=== PATIENT | male | born 1990 | race Caucasian/White ===

== ENCOUNTER 2019-04-26 19:30 | Emergency (ER) | payer OTHER ==
[~2019-04-26] VITALS: Ht 182.9 cm; Wt 93.0 kg
[~2019-04-26 19:30] MED LIST: ALBU90OI INH; AMOX250 PO; CLIN300 PO; CLON.5 PO; DIPH50 PO; FAMO20 PO; HYDACE5 PO; HYDPAM50 PO; IBUP600 PO; METPHE10; METPHE20 PO; NAPR500 PO; OXYACE5T PO; OXYACE7.5T PO; PERM5TC TOP; PRED10 PO; PROM25 PO; QUET200 PO; RXPROM25 PO; RXPROM25S PR; TRAZ50; TRIA80TC TOP
[2019-04-26] MEDS ORDERED: Bactrim Ds Tab1 EACH PO (21:30)
[2019-04-26] MEDS ORDERED: CEPH500 PO (21:30)
== END 2019-04-26 22:00 | disposition home or self-care (01) ==
LOC: ER 19:30
DX: S61.230A Puncture wound without foreign body of right index finger without damage to nail, initial encounter (principal); S61.232A Puncture wound without foreign body of right middle finger without damage to nail, initial encounter; F90.9 Attention-deficit hyperactivity disorder, unspecified type; Z23 Encounter for immunization; Z88.5 Allergy status to narcotic agent; Z88.8 Allergy status to other drugs, medicaments and biological substances; Z87.891 Personal history of nicotine dependence; X58.XXXA Exposure to other specified factors, initial encounter
CPT/HCPCS: 73130; 90471; 90714; 99283-25; A9270

== ENCOUNTER 2019-05-24 15:27 | Emergency (ER) | payer OTHER ==
[~2019-05-24] VITALS: Ht 182.9 cm; Wt 90.7 kg
[~2019-05-24 15:27] MED LIST changes: +Bactrim Ds Tab1 EACH PO; +CEPH500 PO
[2019-05-24] MEDS ORDERED: ALBU90OI INH (15:51)
[2019-05-24] MEDS ORDERED: Bactrim Ds Tab1 EACH PO (15:51)
[2019-05-24] MEDS ORDERED: Vistaril25 MG PO (15:51)
[2019-05-24] MEDS ORDERED: Keflex500 MG PO (15:51)
[2019-05-24] MEDS ORDERED: ALBU2.5V5 NEB (15:55)
== END 2019-05-24 16:00 | disposition home or self-care (01) ==
LOC: ER 15:27
DX: S61.012A Laceration without foreign body of left thumb without damage to nail, initial encounter (principal); F41.9 Anxiety disorder, unspecified; Z87.891 Personal history of nicotine dependence; Z88.5 Allergy status to narcotic agent; W23.0XXA Caught, crushed, jammed, or pinched between moving objects, initial encounter; Y92.39 Other specified sports and athletic area as the place of occurrence of the external cause
CPT/HCPCS: 99282

== ENCOUNTER 2019-06-09 12:04 | Emergency (ER) | payer OTHER ==
[~2019-06-09] VITALS: Ht 180.3 cm; Wt 90.7 kg
[~2019-06-09 12:04] MED LIST changes: +ALBU2.5V5 NEB; +Keflex500 MG PO; +Vistaril25 MG PO
[2019-06-09] MEDS ORDERED: Colace250 MG PO (13:13)
[2019-06-11 03:08] LABS: HCV ANTIBODY 0.1 (0.0-0.9); HIV SCREEN 4TH GENERATION WRFX Non Reactive (Non Reactive)
== END 2019-06-09 13:45 ==
LOC: ER 12:04
PROVIDERS: Emergency Medicine
DX: T74.21XA Adult sexual abuse, confirmed, initial encounter (principal); Z87.891 Personal history of nicotine dependence; Z88.5 Allergy status to narcotic agent
CPT/HCPCS: 36415; 86317; 86803; 87389; 96372; 99284-25; J0696

== ENCOUNTER → 2019-10-02 | Outpatient (CLI) | payer OTHER ==
[~2019-10-02] MED LIST changes: +Colace250 MG PO
[2019-10-02 14:14] LABS: BASOPHILS ABSOLUTE AUTO 0.05 K/mm3 (0.00-0.23); BASOPHILS PERCENT AUTO 1 % (0-2); EOSINOPHILS ABSOLUTE AUTO 0.13 K/mm3 (0.00-0.68); EOSINOPHILS PERCENT AUTO 2 % (0-6); Hematocrit 47.8 % (37.0-53.0); Hemoglobin 16.1 g/dL (13.5-17.5); IMMATURE GRAN ABSOLUTE AUTO 0.01 K/mm3 (0.00-0.10); IMMATURE GRAN PERCENT AUTO 0 % (0-1); LYMPHOCYTES ABSOLUTE AUTO 2.38 K/mm3 (0.84-5.20); LYMPHOCYTES PERCENT AUTO 36 % (21-46); MONOCYTES ABSOLUTE AUTO 0.32 K/mm3 (0.16-1.47); MONOCYTES PERCENT AUTO 5 % (4-13); Mean Corpuscular HGB 30.5 pg (26.0-34.0); Mean Corpuscular HGB Conc 33.7 g/dL (31.5-36.5); Mean Corpuscular Volume 91 fL (80-100); Mean Platelet Volume 11.9 fL (9.1-12.4); NEUTROPHILS ABSOLUTE AUTO 3.68 K/mm3 (1.96-9.15); NEUTROPHILS PERCENT AUTO 56 % (41-73); Platelet Count 243 K/mm3 (150-400); RDW Coefficient Variation 13.4 % (11.7-14.2); RDW Standard Deviation 44.7 fL (35.1-46.3); Red Blood Cell Count 5.28 M/mm3 (4.30-5.90); White Blood Cell Count 6.57 K/mm3 (4.00-11.30)
[2019-10-02 14:35] LABS: Alanine Aminotransfer (ALT/SGP 39 U/L (12-78); Albumin, Blood 4.3 g/dL (3.4-5.0); Alk Phos 54 U/L (40-126); Anion Gap 4 mmol/L (6-16); Aspartate Aminotrans (AST/SGOT 39 U/L (12-37); Bilirubin, Total 0.8 mg/dL (0.1-1.0); Blood Urea Nitrogen 11 mg/dL (8-24); Bun/Creatinine Ratio 13.9 (12.0-20.0); CO2, Blood 29 mmol/L (21-32); Calcium, Blood 9.5 mg/dL (8.5-10.1); Chloride, Blood 103 mmol/L (98-108); Creatinine, Blood 0.79 mg/dL (0.60-1.20); Globulin, Blood 4.1 g/dL (2.2-4.0); Glomerular Filtration Rate >60 (60-); Glucose, Blood 91 mg/dL (70-99); Sodium, Blood 136 mmol/L (136-145); Total Protein, Blood 8.4 g/dL (6.4-8.2)
[2019-10-02 14:36] LABS: Potassium, Blood 4.7 mmol/L (3.5-5.5)
== END ==
LOC: LAB SHORT 14:10 → LAB EV 14:10
PROVIDERS: Physician Assistant
DX: K52.9 Noninfective gastroenteritis and colitis, unspecified (principal)
CPT/HCPCS: 80053; 85025

== ENCOUNTER 2020-07-16 16:10 | Emergency (ER) | payer OTHER ==
[~2020-07-16] VITALS: Ht 182.9 cm; Wt 93.0 kg
[~2020-07-16 16:10] MED LIST changes: +GABA600 PO; +Inderal 20 mg T20 MG PO; +OMEP20ER PO
== END 2020-07-16 17:34 | disposition home or self-care (01) ==
LOC: ER 16:10
DX: S60.452A Superficial foreign body of right middle finger, initial encounter (principal); F41.9 Anxiety disorder, unspecified; Z88.5 Allergy status to narcotic agent; Z87.891 Personal history of nicotine dependence; Z79.899 Other long term (current) drug therapy; W49.04XA Ring or other jewelry causing external constriction, initial encounter
CPT/HCPCS: 99283

== ENCOUNTER 2020-08-14 15:02 | Emergency (ER) | payer OTHER ==
[~2020-08-14] VITALS: Ht 180.3 cm; Wt 95.2 kg
[2020-08-14] MEDS ORDERED: BUPRENORPHINE HC2 MG SL (15:09)
[2020-08-14 15:24] LABS: Source, Urine Voided
[2020-08-14 15:29] LABS: Appearance, Urine Hazy (Clear); Bilirubin, Urine Neg (Neg); Blood, Urine 5+ (Neg); Color, Urine Yellow (P-Yellow); Glucose Qualitative, Urine Neg (Neg); Ketones, Urine Neg (Neg); Leukocyte Esterase, Urine 2+ (Neg); Nitrite, Urine Neg (Neg); Protein, Urine 1+ (Neg); Urobilinogen, Urine NORM (Normal)
[2020-08-14 15:40] LABS: Bacteria Few /hpf; Red Blood Cells, Urine 50-100 /hpf (0-2); Squamous Epithelial Cells Few /hpf (Few)
[2020-08-14 16:13] LABS: BASOPHILS ABSOLUTE AUTO 0.05 K/mm3 (0.00-0.23); BASOPHILS PERCENT AUTO 1 % (0-2); EOSINOPHILS ABSOLUTE AUTO 0.21 K/mm3 (0.00-0.68); EOSINOPHILS PERCENT AUTO 3 % (0-6); Hematocrit 43.9 % (37.0-53.0); Hemoglobin 14.3 g/dL (13.5-17.5); IMMATURE GRAN ABSOLUTE AUTO 0.01 K/mm3 (0.00-0.10); IMMATURE GRAN PERCENT AUTO 0 % (0-1); LYMPHOCYTES ABSOLUTE AUTO 3.24 K/mm3 (0.84-5.20); LYMPHOCYTES PERCENT AUTO 39 % (21-46); MONOCYTES ABSOLUTE AUTO 0.74 K/mm3 (0.16-1.47); MONOCYTES PERCENT AUTO 9 % (4-13); Mean Corpuscular HGB 29.2 pg (26.0-34.0); Mean Corpuscular HGB Conc 32.6 g/dL (31.5-36.5); Mean Corpuscular Volume 90 fL (80-100); Mean Platelet Volume 10.5 fL (9.1-12.4); NEUTROPHILS ABSOLUTE AUTO 4.03 K/mm3 (1.96-9.15); NEUTROPHILS PERCENT AUTO 49 % (41-73); Platelet Count 254 K/mm3 (150-400); RDW Coefficient Variation 13.1 % (11.7-14.2); RDW Standard Deviation 43.4 fL (35.1-46.3); White Blood Cell Count 8.28 K/mm3 (4.00-11.30)
[2020-08-14 16:30] LABS: Alanine Aminotransfer (ALT/SGP 67 U/L (12-78); Albumin, Blood 3.3 g/dL (3.4-5.0); Albumin/Globulin Ratio 0.8 (0.8-1.8); Alk Phos 65 U/L (50-136); Anion Gap 3 mmol/L (6-16); Aspartate Aminotrans (AST/SGOT 30 U/L (12-37); Bilirubin, Total 0.2 mg/dL (0.1-1.0); Blood Urea Nitrogen 14 mg/dL (8-24); Bun/Creatinine Ratio 15.9 (12.0-20.0); CO2, Blood 32 mmol/L (21-32); Calcium, Blood 9.1 mg/dL (8.5-10.1); Chloride, Blood 103 mmol/L (98-108); Creatinine, Blood 0.88 mg/dL (0.60-1.20); Globulin, Blood 3.9 g/dL (2.2-4.0); Glomerular Filtration Rate >60 (60-); Glucose, Blood 92 mg/dL (70-99); Potassium, Blood 4.3 mmol/L (3.5-5.5); Sodium, Blood 138 mmol/L (136-145); Total Protein, Blood 7.2 g/dL (6.4-8.2)
[2020-08-14] MEDS ORDERED: Monodox100 MG PO (16:48)
[2020-08-14] MEDS ORDERED: VALTREX500 MG PO (16:53)
== END 2020-08-14 17:15 | disposition home or self-care (01) ==
LOC: ER 15:02
PROVIDERS: Physician Assistant; Student in an Organized Health Care Education/Training Program
DX: B00.1 Herpesviral vesicular dermatitis (principal); R31.9 Hematuria, unspecified; R10.9 Unspecified abdominal pain; Z88.5 Allergy status to narcotic agent; Z79.899 Other long term (current) drug therapy; Z87.891 Personal history of nicotine dependence; Y04.0XXA Assault by unarmed brawl or fight, initial encounter
CPT/HCPCS: 36415; 74177; 80053; 81001; 85025; 87086; 96372-59; 99284-25; J0696; Q9967

== ENCOUNTER 2020-08-26 12:37 | Emergency (ER) | payer OTHER ==
[~2020-08-26] VITALS: Ht 180.3 cm; Wt 78.0 kg
[~2020-08-26 12:37] MED LIST changes: +BUPRENORPHINE HC2 MG SL; +Monodox100 MG PO; +VALTREX500 MG PO
[2020-08-26] MEDS ORDERED: METPHE20 PO (13:00)
[2020-08-26 13:22] LABS: BASOPHILS ABSOLUTE AUTO 0.08 K/mm3 (0.00-0.23); BASOPHILS PERCENT AUTO 1 % (0-2); EOSINOPHILS ABSOLUTE AUTO 0.18 K/mm3 (0.00-0.68); EOSINOPHILS PERCENT AUTO 2 % (0-6); Hematocrit 39.9 % (37.0-53.0); Hemoglobin 13.4 g/dL (13.5-17.5); IMMATURE GRAN ABSOLUTE AUTO 0.01 K/mm3 (0.00-0.10); IMMATURE GRAN PERCENT AUTO 0 % (0-1); LYMPHOCYTES ABSOLUTE AUTO 2.93 K/mm3 (0.84-5.20); LYMPHOCYTES PERCENT AUTO 32 % (21-46); MONOCYTES ABSOLUTE AUTO 0.79 K/mm3 (0.16-1.47); MONOCYTES PERCENT AUTO 9 % (4-13); Mean Corpuscular HGB 29.3 pg (26.0-34.0); Mean Corpuscular HGB Conc 33.6 g/dL (31.5-36.5); Mean Corpuscular Volume 87 fL (80-100); Mean Platelet Volume 10.9 fL (9.1-12.4); NEUTROPHILS ABSOLUTE AUTO 5.07 K/mm3 (1.96-9.15); NEUTROPHILS PERCENT AUTO 56 % (41-73); Platelet Count 262 K/mm3 (150-400); RDW Coefficient Variation 13.2 % (11.7-14.2); RDW Standard Deviation 42.2 fL (35.1-46.3); Red Blood Cell Count 4.57 M/mm3 (4.30-5.90); White Blood Cell Count 9.06 K/mm3 (4.00-11.30)
[2020-08-26 13:50] LABS: Alanine Aminotransfer (ALT/SGP 48 U/L (12-78); Albumin, Blood 4.1 g/dL (3.4-5.0); Albumin/Globulin Ratio 1.2 (0.8-1.8); Alk Phos 62 U/L (50-136); Anion Gap 9 mmol/L (6-16); Aspartate Aminotrans (AST/SGOT 42 U/L (12-37); Bilirubin, Total 0.8 mg/dL (0.1-1.0); Blood Urea Nitrogen 22 mg/dL (8-24); Bun/Creatinine Ratio 27.7 (12.0-20.0); CO2, Blood 24 mmol/L (21-32); Calcium, Blood 9.2 mg/dL (8.5-10.1); Chloride, Blood 104 mmol/L (98-108); Creatinine, Blood 0.79 mg/dL (0.60-1.20); Globulin, Blood 3.5 g/dL (2.2-4.0); Glomerular Filtration Rate >60 (60-); Glucose, Blood 92 mg/dL (70-99); Potassium, Blood 3.8 mmol/L (3.5-5.5); Sodium, Blood 137 mmol/L (136-145); Total Protein, Blood 7.6 g/dL (6.4-8.2)
== END 2020-08-26 16:13 | disposition left against medical advice (07) ==
LOC: ER 12:37
PROVIDERS: Emergency Medicine
DX: R42 Dizziness and giddiness (principal); Z53.21 Procedure and treatment not carried out due to patient leaving prior to being seen by health care provider
CPT/HCPCS: 36415; 80053; 85025

== ENCOUNTER 2020-09-12 01:16 | Emergency (ER) | payer OTHER ==
[~2020-09-12] VITALS: Ht 180.3 cm; Wt 79.4 kg
[2020-09-12] MEDS ORDERED: TRAZ100 PO (02:12)
== END 2020-09-12 02:19 | disposition home or self-care (01) ==
LOC: ER 01:16
DX: F41.9 Anxiety disorder, unspecified (principal); Z79.899 Other long term (current) drug therapy; Z87.891 Personal history of nicotine dependence; Z88.5 Allergy status to narcotic agent
CPT/HCPCS: 99282

== ENCOUNTER 2020-11-10 15:42 | Emergency (ER) | payer OTHER ==
[~2020-11-10] VITALS: Ht 180.3 cm; Wt 83.9 kg
[~2020-11-10 15:42] MED LIST changes: +TRAZ100 PO
[2020-11-10 16:58] LABS: BASOPHILS ABSOLUTE AUTO 0.06 K/mm3 (0.00-0.23); BASOPHILS PERCENT AUTO 1 % (0-2); EOSINOPHILS ABSOLUTE AUTO 0.47 K/mm3 (0.00-0.68); EOSINOPHILS PERCENT AUTO 5 % (0-6); Hematocrit 43.9 % (37.0-53.0); Hemoglobin 14.6 g/dL (13.5-17.5); IMMATURE GRAN ABSOLUTE AUTO 0.02 K/mm3 (0.00-0.10); IMMATURE GRAN PERCENT AUTO 0 % (0-1); LYMPHOCYTES ABSOLUTE AUTO 2.82 K/mm3 (0.84-5.20); LYMPHOCYTES PERCENT AUTO 30 % (21-46); MONOCYTES ABSOLUTE AUTO 0.65 K/mm3 (0.16-1.47); MONOCYTES PERCENT AUTO 7 % (4-13); Mean Corpuscular HGB 29.6 pg (26.0-34.0); Mean Corpuscular HGB Conc 33.3 g/dL (31.5-36.5); Mean Corpuscular Volume 89 fL (80-100); Mean Platelet Volume 10.4 fL (9.1-12.4); NEUTROPHILS ABSOLUTE AUTO 5.46 K/mm3 (1.96-9.15); NEUTROPHILS PERCENT AUTO 58 % (41-73); Platelet Count 225 K/mm3 (150-400); RDW Coefficient Variation 13.6 % (11.7-14.2); Red Blood Cell Count 4.94 M/mm3 (4.30-5.90); White Blood Cell Count 9.48 K/mm3 (4.00-11.30)
[2020-11-10 17:22] LABS: Alanine Aminotransfer (ALT/SGP 115 U/L (12-78); Albumin, Blood 3.6 g/dL (3.4-5.0); Albumin/Globulin Ratio 0.9 (0.8-1.8); Alk Phos 83 U/L (50-136); Anion Gap 8 mmol/L (6-16); Aspartate Aminotrans (AST/SGOT 40 U/L (12-37); Bilirubin, Total 0.2 mg/dL (0.1-1.0); Blood Urea Nitrogen 12 mg/dL (8-24); Bun/Creatinine Ratio 15.1 (12.0-20.0); CO2, Blood 28 mmol/L (21-32); Chloride, Blood 105 mmol/L (98-108); Ethanol (Alcohol), Blood, Med <3 mg/dL; Globulin, Blood 3.9 g/dL (2.2-4.0); Glomerular Filtration Rate >60 (60-); Glucose, Blood 93 mg/dL (70-99); Potassium, Blood 3.9 mmol/L (3.5-5.5); Salicylate <1.7 mg/dL (2.8-20.0); Sodium, Blood 141 mmol/L (136-145); Total Protein, Blood 7.5 g/dL (6.4-8.2)
[2020-11-10] MEDS ORDERED: [UNRECOGNIZED DRUG - REMARK] (17:28)
[2020-11-10 17:45] LABS: Acetaminophen, Random <2.0 ug/mL (10.0-30.0)
== END 2020-11-10 21:56 | disposition home or self-care (01) ==
LOC: ER 15:42
PROVIDERS: Physician Assistant
DX: F15.259 Other stimulant dependence with stimulant-induced psychotic disorder, unspecified (principal); F11.259 Opioid dependence with opioid-induced psychotic disorder, unspecified; F43.21 Adjustment disorder with depressed mood; R45.851 Suicidal ideations; F20.9 Schizophrenia, unspecified; F31.9 Bipolar disorder, unspecified; F41.9 Anxiety disorder, unspecified; F90.9 Attention-deficit hyperactivity disorder, unspecified type; Z91.5 Personal history of self-harm; Z88.5 Allergy status to narcotic agent; Z79.899 Other long term (current) drug therapy; Z87.891 Personal history of nicotine dependence; Z86.14 Personal history of Methicillin resistant Staphylococcus aureus infection
CPT/HCPCS: 36415; 80053; 85025; 99284; G0480; Q3014

== ENCOUNTER 2022-07-05 18:55 | Emergency (ER) | payer OTHER ==
[~2022-07-05] VITALS: Ht 182.9 cm; Wt 83.9 kg
[~2022-07-05 18:55] MED LIST changes: +ABILIFY MYCITE20 M2 PO; +Acetaminophen650 M1 PO; +BISA10S; +CELEXA40 M1 PO; +DOXY100 PO; +Mupirocin22 GM TOP; +Percocet 5-3251 EACH PO; +SULTRIDS PO; +TRAZ150T57 PO; +VISBIOME 112.51 EACH PO; +[UNRECOGNIZED DRUG - REMARK]
[2022-07-05] MEDS ORDERED: CYCL10 PO (22:50)
[2022-07-05] MEDS ORDERED: ALBU90OI INH (22:57)
== END 2022-07-05 23:03 | disposition home or self-care (01) ==
LOC: ER 18:55
DX: S16.1XXA Strain of muscle, fascia and tendon at neck level, initial encounter (principal); S39.012A Strain of muscle, fascia and tendon of lower back, initial encounter; V89.2XXA Person injured in unspecified motor-vehicle accident, traffic, initial encounter; Z88.5 Allergy status to narcotic agent; Z87.891 Personal history of nicotine dependence
CPT/HCPCS: 70450; 72100; 72125; A9270

== ENCOUNTER 2022-08-17 19:39 | Emergency (ER) | payer OTHER ==
[~2022-08-17] VITALS: Ht 175.3 cm; Wt 77.1 kg
[~2022-08-17 19:39] MED LIST changes: +CYCL10 PO
[2022-08-17] MEDS ORDERED: ALBU90OI INH (23:19)
[2022-08-17] MEDS ORDERED: NARCAN4 M1 (23:19)
== END 2022-08-17 23:48 | disposition home or self-care (01) ==
LOC: ER 19:39
DX: T40.411A Poisoning by fentanyl or fentanyl analogs, accidental (unintentional), initial encounter (principal); R40.4 Transient alteration of awareness; Z88.5 Allergy status to narcotic agent; Z79.899 Other long term (current) drug therapy; Z87.891 Personal history of nicotine dependence
CPT/HCPCS: 71045; 73100; 93005; 93010; 94640; 94664; 99284-25

== ENCOUNTER 2022-12-16 19:32 | Observation (INO) | payer OTHER ==
[~2022-12-16] VITALS: Ht 182.9 cm; Wt 80.3 kg
[~2022-12-16 19:32] MED LIST changes: -ABILIFY MYCITE5 M2 PO; -ESCI20 PO; -GABAPENTIN600 MG PO
[2022-12-16] MEDS ORDERED: GABAPENTIN600 MG PO (19:55)
[2022-12-16] MEDS ORDERED: ESCI20 PO (19:55)
[2022-12-16] MEDS ORDERED: ABILIFY MYCITE5 M2 PO (19:56)
[2022-12-16] MEDS ORDERED: METPHE20 PO (19:56)
[2022-12-16] MEDS ORDERED: TRAZ150T57 PO (19:56)
[2022-12-16 20:34] LABS: Influenza A, PCR NEGATIVE (NEGATIVE); Influenza B, PCR NEGATIVE (NEGATIVE); Resp Syncytial Virus, PCR NEGATIVE (NEGATIVE); SARS-Cov-2 (COVID-19) PCR, MMC NEGATIVE (NEGATIVE)
[2022-12-16 22:32] LABS: C-REACTIVE PROTEIN, EXT RANGE 18.1 mg/dL (0.000-0.300)
[2022-12-16 23:49] VITALS: BP 110/64
[2022-12-17 00:56] LABS: Hematocrit 40.1 % (37.0-53.0); Hemoglobin 13.3 g/dL (13.5-17.5); Mean Corpuscular HGB 28.3 pg (26.0-34.0); Mean Corpuscular HGB Conc 33.2 g/dL (31.5-36.5); Mean Corpuscular Volume 85 fL (80-100); Mean Platelet Volume 11.1 fL (9.1-12.4); Platelet Count 215 K/mm3 (150-400); RDW Coefficient Variation 13.9 % (11.7-14.2); RDW Standard Deviation 42.9 fL (35.1-46.3); White Blood Cell Count 26.97 K/mm3 (4.00-11.30)
[2022-12-17 01:16] LABS: BAND PERCENT MAN 12 % (0-8); BASOPHILS PERCENT MAN 0 % (0-2); EOSINOPHILS PERCENT MAN 0 % (0-6); LYMPHOCYTES ABSOLUTE MAN 0.53 K/mm3 (0.84-5.20); LYMPHOCYTES PERCENT MAN 2 % (21-46); MONOCYTES ABSOLUTE MAN 1.61 K/mm3 (0.16-1.47); MONOCYTES PERCENT MAN 6 % (4-13); NEUTROPHILS ABSOLUTE MAN 24.81 K/mm3 (1.96-9.15); SEG NEUTROPHILS PERCENT MAN 80 % (41-73); TOTAL CELLS COUNTED 100
[2022-12-17 01:21] LABS: Albumin, Blood 2.4 g/dL (3.4-5.0); Albumin/Globulin Ratio 0.5 (0.8-1.8); Bilirubin, Total 0.4 mg/dL (0.1-1.0); Bun/Creatinine Ratio 35.7 (12.0-20.0); Calcium, Blood 8.6 mg/dL (8.5-10.1); Creatinine, Blood 0.62 mg/dL (0.60-1.20); Globulin, Blood 4.4 g/dL (2.2-4.0); Potassium, Blood 3.9 mmol/L (3.5-5.5); Total Protein, Blood 6.8 g/dL (6.4-8.2)
--- NOTE | 2022-12-17 06:33 | NUR ---
PT ADMITTED FROM ED LETHARGIC BUT ORIENTED, COOPERATIVE. GIRLFRIEND ARRIVED AROUND MIDNIGHT, INFORMED PT AND GF THAT VISITING HOURS WERE OVER, HAD TO CALL SECURITY DUE TO YELLING, CURSING, REFUSING BY BOTH PATIENT AND GF. PT WAS PLEASANT AND COOPERATIVE AGAIN AFTERWARDS. PT INTERMITTENTLY TACHYCARDIC, ANXIOUS. STATES HE HAD FENTANYL YESTERDAY PRIOR TO GOING TO URGENT CARE THEN ED. TOLERATING CARES/MEDS, INDEPENDENT, ORIENTED. DENIED SKIN ISSUES AND REFUSED FULL SKIN CHECK. TWO SCABS NOTED ON L ARM.
[2022-12-17 07:44] VITALS: BP 116/77
--- NOTE | 2022-12-17 12:25 | NUR ---
PATIENT LEFT AMA DURING MORNING MED PASS AND ASSESSMENT, PATIENT RAISED VOICE TO YELLING AND CUSSING, STATES UPSET HE ONLY GETS TYLENOL FOR PAIN. 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 PATIENT CONTINUED WITH RASIED VOICE AND CUSSING AFTER BEING TOLD HIS BEHAVIOR WAS NOT APPROPRIATE. PATIENT TOLD HE CAN LEAVE IF HE IS NOT GOING TO BE RESPECTFUL OF THE RULES OF HOSPITAL. PATIENT STATES HE IS LEAVING, GETS UP TO LEAVE, IV REMOVED BY RIMA, DR GARCIA NOTIFIED AT 1020, AMA SIGNATURE OBTAINED AND PATIENT LEFT FLOOR WITH INCIDENT RESPONSE LEAD AT 1023 ON 12/17/22.
--- NOTE | 2022-12-17 15:12 | NUR ---
THIS FRUIT THINNER AGREES WITH NOTE BY ASHLEY UNRULY.
== END 2022-12-17 10:23 | disposition left against medical advice (07) ==
LOC: ER 19:32 → MEDS 19:33 → ER 22:46 → MEDS 23:00
PROVIDERS: Emergency Medicine; Student in an Organized Health Care Education/Training Program; ADMIT Student in an Organized Health Care Education/Training Program
DX: J18.9 Pneumonia, unspecified organism (principal); F11.20 Opioid dependence, uncomplicated; Z87.891 Personal history of nicotine dependence; Z88.5 Allergy status to narcotic agent; Z79.899 Other long term (current) drug therapy; Z20.822 Contact with and (suspected) exposure to COVID-19
CPT/HCPCS: 0241U; 36415; 71045; 80053; 82550; 83605; 83735; 84484; 85025; 85651; 86140; 93005; 93010; 94640; 94664; 94760; 96365; 96367; 99285-25; G0378; J0456; J0696; J3370; J7030; J7050

== ENCOUNTER → 2022-12-16 | Outpatient (CLI) | payer OTHER ==
[~2022-12-16] MED LIST changes: +ABILIFY MYCITE5 M2 PO; +ESCI20 PO; +GABAPENTIN600 MG PO; +NARCAN4 M1
[2022-12-16 18:01] LABS: Hemoglobin 14.7 g/dL (13.5-17.5); Mean Corpuscular HGB 28.8 pg (26.0-34.0); Mean Corpuscular HGB Conc 34.2 g/dL (31.5-36.5); Mean Corpuscular Volume 84 fL (80-100); Mean Platelet Volume 11.3 fL (9.1-12.4); Platelet Count 236 K/mm3 (150-400); RDW Coefficient Variation 14.3 % (11.7-14.2); RDW Standard Deviation 43.6 fL (35.1-46.3); Red Blood Cell Count 5.11 M/mm3 (4.30-5.90); White Blood Cell Count 34.94 K/mm3 (4.00-11.30)
[2022-12-16 18:15] LABS: Albumin, Blood 3.1 g/dL (3.4-5.0); Albumin/Globulin Ratio 0.6 (0.8-1.8); Bilirubin, Total 1.2 mg/dL (0.1-1.0); Bun/Creatinine Ratio 22.1 (12.0-20.0); Calcium, Blood 9.4 mg/dL (8.5-10.1); Creatinine, Blood 1.04 mg/dL (0.60-1.20); Globulin, Blood 5.3 g/dL (2.2-4.0); Potassium, Blood 3.8 mmol/L (3.5-5.5); Total Protein, Blood 8.4 g/dL (6.4-8.2)
[2022-12-16 18:16] LABS: Bicarbonate Venous 27.9 mmol/L (24.0-30.0); PCO2 Venous 52.6 mmHg (38-42); pH Blood Venous 7.38 (7.34-7.37)
[2022-12-16 18:44] LABS: BAND PERCENT MAN 22 % (0-8); BASOPHILS PERCENT MAN 0 % (0-2); EOSINOPHILS PERCENT MAN 0 % (0-6); LYMPHOCYTES ABSOLUTE MAN 0.69 K/mm3 (0.84-5.20); LYMPHOCYTES PERCENT MAN 2 % (21-46); METAMYELOCYTE ABSOLUTE MAN 1.39 K/mm3 (0.00-0.00); METAMYELOCYTE PERCENT MAN 4 % (0-0); MONOCYTES ABSOLUTE MAN 0.69 K/mm3 (0.16-1.47); MONOCYTES PERCENT MAN 2 % (4-13); NEUTROPHILS ABSOLUTE MAN 32.14 K/mm3 (1.96-9.15); SEG NEUTROPHILS PERCENT MAN 70 % (41-73); TOTAL CELLS COUNTED 100
== END | disposition home or self-care (01) ==
LOC: LAB SHORT 17:53 → LAB 17:53
PROVIDERS: Emergency Medicine
DX: J45.909 Unspecified asthma, uncomplicated (principal); R07.9 Chest pain, unspecified
CPT/HCPCS: 80053; 82803; 83690; 83880; 84484; 85025

== ENCOUNTER 2023-01-20 01:11 | Emergency (ER) | payer OTHER ==
[~2023-01-20] VITALS: Ht 182.9 cm; Wt 83.9 kg
[~2023-01-20 01:11] MED LIST changes: +ABILIFY MYCITE5 M2 PO; +ESCI20 PO; +GABAPENTIN600 MG PO
[2023-01-20 04:15] LABS: Influenza A, PCR NEGATIVE (NEGATIVE); Influenza B, PCR NEGATIVE (NEGATIVE); Resp Syncytial Virus, PCR NEGATIVE (NEGATIVE); SARS-Cov-2 (COVID-19) PCR, MMC NEGATIVE (NEGATIVE)
[2023-01-20 04:30] VITALS: BP 145/79
[2023-01-20] MEDS ORDERED: ALBU90OI INH (04:49)
[2023-01-20] MEDS ORDERED: METPRE4DP PO (04:49)
== END 2023-01-20 04:56 | disposition home or self-care (01) ==
LOC: ER 01:11
PROVIDERS: Emergency Medicine
DX: J45.901 Unspecified asthma with (acute) exacerbation (principal); J98.8 Other specified respiratory disorders; B97.89 Other viral agents as the cause of diseases classified elsewhere; Z88.5 Allergy status to narcotic agent; Z20.822 Contact with and (suspected) exposure to COVID-19; Z87.891 Personal history of nicotine dependence
CPT/HCPCS: 0241U; 71046; 94644; 94664; 99285-25; J7512

== ENCOUNTER 2023-02-23 02:01 | Inpatient (IN) | payer OTHER ==
[~2023-02-23] VITALS: Ht 180.3 cm; Wt 80.8 kg
[2023-02-23] VITALS (31 sets, daily range): BP systolic 108–153; BP diastolic 56–85
[~2023-02-23 02:01] MED LIST changes: +METPRE4DP PO
[2023-02-23 02:15] LABS: Calcium, Ionized (POC) 1.21 mmol/L (1.10-1.46); Chloride (POC) 104 mmol/L (98-108); Creatinine (POC) 1.1 mg/dL (0.8-1.3); Glucose (ISTAT POC) 107 mg/dL (70-99); Potassium (POC) 3.5 mmol/L (3.5-5.5); Sodium (POC) 142 mmol/L (135-148); Total CO2 (POC) 23 mmol/L (21-32)
[2023-02-23 02:18] LABS: pH Blood Venous 7.25 (7.34-7.37)
[2023-02-23 02:20] LABS: Hemoglobin 13.9 g/dL (13.5-17.5); Mean Corpuscular HGB 27.8 pg (26.0-34.0); Mean Corpuscular HGB Conc 32.3 g/dL (31.5-36.5); Mean Corpuscular Volume 86 fL (80-100); Mean Platelet Volume 10.9 fL (9.1-12.4); Platelet Count 289 K/mm3 (150-400); RDW Coefficient Variation 14.2 % (11.7-14.2); RDW Standard Deviation 44.5 fL (35.1-46.3); White Blood Cell Count 12.96 K/mm3 (4.00-11.30)
[2023-02-23 02:38] LABS: Bun/Creatinine Ratio 19.3 (12.0-20.0); Calcium, Blood 9.4 mg/dL (8.5-10.1); Creatinine, Blood 0.98 mg/dL (0.60-1.20); Magnesium, Blood 2.2 mg/dL (1.6-2.4); Potassium, Blood 3.7 mmol/L (3.5-5.5)
[2023-02-23 03:07] LABS: Source, Urine Clean Catch
[2023-02-23 03:09] LABS: Bilirubin, Urine Neg (Neg); Blood, Urine 3+ (Neg); Glucose Qualitative, Urine Neg (Neg); Ketones, Urine Neg (Neg); Leukocyte Esterase, Urine Neg (Neg); Nitrite, Urine Neg (Neg); Protein, Urine 3+ (Neg); Specific Gravity, Urine 1.025 (1.003-1.022); Urobilinogen, Urine NORM (Normal)
[2023-02-23 03:09] LABS: BASOPHILS ABSOLUTE MAN 0.12 K/mm3 (0.00-0.23); BASOPHILS PERCENT MAN 1 % (0-2); EOSINOPHILS ABSOLUTE MAN 1.16 K/mm3 (0.00-0.68); EOSINOPHILS PERCENT MAN 9 % (0-6); LYMPHOCYTES PERCENT MAN 51 % (21-46); MONOCYTES PERCENT MAN 7 % (4-13); NEUTROPHILS ABSOLUTE MAN 4.14 K/mm3 (1.96-9.15); SEG NEUTROPHILS PERCENT MAN 32 % (41-73); TOTAL CELLS COUNTED 100
[2023-02-23 03:36] LABS: PCO2 Arterial 37.1 mmHg (35-45); PO2 Arterial 107 mmHg (80-100); pH Blood Arterial 7.47 (7.35-7.45)
[2023-02-23 03:44] LABS: U Amphetamine Screen DETECTED; U Barbituate Screen Not Detected; U Benzodiazapine Screen Not Detected; U Buprenorphine Screen Not Detected; U Cannabinoids Screen Not Detected; U Cocaine Screen Not Detected; U Methadone Screen DETECTED; U Methamphetamine Screen DETECTED; U Opiates Screen Not Detected; U Oxycodone Screen Not Detected; U Phencyclidine Screen Not Detected; U Propoxyphene Screen Not Detected
[2023-02-23 04:26] LABS: Appearance, Urine Hazy (Clear); Color, Urine Yellow (P-Yellow)
[2023-02-23 04:28] LABS: Bacteria Mod /hpf; Squamous Epithelial Cells Rare /hpf (Few); White Blood Cells, Urine 0-2 /hpf (0-5)
[2023-02-23 04:35] LABS: Influenza A, PCR NEGATIVE (NEGATIVE); Influenza B, PCR NEGATIVE (NEGATIVE); Resp Syncytial Virus, PCR NEGATIVE (NEGATIVE); SARS-Cov-2 (COVID-19) PCR, MMC NEGATIVE (NEGATIVE)
[2023-02-23 05:13] LABS: BASOPHILS ABSOLUTE AUTO 0.05 K/mm3 (0.00-0.23); BASOPHILS PERCENT AUTO 1 % (0-2); EOSINOPHILS ABSOLUTE AUTO 0.07 K/mm3 (0.00-0.68); EOSINOPHILS PERCENT AUTO 1 % (0-6); Hematocrit 37.3 % (37.0-53.0); Hemoglobin 12.4 g/dL (13.5-17.5); IMMATURE GRAN ABSOLUTE AUTO 0.03 K/mm3 (0.00-0.10); IMMATURE GRAN PERCENT AUTO 0 % (0-1); LYMPHOCYTES ABSOLUTE AUTO 1.07 K/mm3 (0.84-5.20); LYMPHOCYTES PERCENT AUTO 10 % (21-46); MONOCYTES ABSOLUTE AUTO 0.26 K/mm3 (0.16-1.47); MONOCYTES PERCENT AUTO 2 % (4-13); Mean Corpuscular HGB 27.7 pg (26.0-34.0); Mean Corpuscular HGB Conc 33.2 g/dL (31.5-36.5); Mean Corpuscular Volume 83 fL (80-100); Mean Platelet Volume 11.1 fL (9.1-12.4); NEUTROPHILS ABSOLUTE AUTO 9.48 K/mm3 (1.96-9.15); NEUTROPHILS PERCENT AUTO 86 % (41-73); Platelet Count 230 K/mm3 (150-400); RDW Standard Deviation 42.9 fL (35.1-46.3); Red Blood Cell Count 4.47 M/mm3 (4.30-5.90); White Blood Cell Count 10.96 K/mm3 (4.00-11.30)
[2023-02-23 05:48] LABS: Source, Urine Foley catheter
[2023-02-23 06:24] LABS: Appearance, Urine Cloudy (Clear); Bilirubin, Urine Neg (Neg); Blood, Urine Neg (Neg); Color, Urine Yellow (P-Yellow); Glucose Qualitative, Urine Neg (Neg); Ketones, Urine 1+ (Neg); Leukocyte Esterase, Urine Neg (Neg); Nitrite, Urine Neg (Neg); Protein, Urine Neg (Neg); Urobilinogen, Urine NORM (Normal)
--- NOTE | 2023-02-23 06:28 | NUR ---
PATIENT TO ICU 7 FROM ER AT 0435. PATIENT IS INTUBATED AND SEDATED ON PROPOFOL, UPON ARRIVAL TO ROOM STILL ATTEMPTING TO SIT UP, VERBAL ORDER FROM [facility] FOR VERSED PUSH. VENT SETTINGS AC VC 16/530/5/30%, RR 16, LS COARSE. SPUTUM SAMPLE SENT. ETT 8.0 AND 27 AT TEETH. OG TO LIS WITH GREEN BILE DRAINING. HR SR 70s, BP STABLE. SEGURA INSERTED IN ER, UA SENT FROM SEGURA. 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
[2023-02-23 06:29] LABS: Albumin, Blood 3.6 g/dL (3.4-5.0); Albumin/Globulin Ratio 1.1 (0.8-1.8); Bilirubin, Total 0.5 mg/dL (0.1-1.0); Bun/Creatinine Ratio 22.3 (12.0-20.0); Calcium, Blood 8.8 mg/dL (8.5-10.1); Creatinine, Blood 0.85 mg/dL (0.60-1.20); Globulin, Blood 3.4 g/dL (2.2-4.0); Magnesium, Blood 2.4 mg/dL (1.6-2.4); Potassium, Blood 3.1 mmol/L (3.5-5.5)
[2023-02-23 06:37] LABS: Bacteria Few /hpf; Red Blood Cells, Urine 0-2 /hpf (0-2); Squamous Epithelial Cells Not Seen /hpf (Few); White Blood Cells, Urine 0-2 /hpf (0-5)
[2023-02-23 06:38] LABS: Amorphous Mod (0-Heavy)
--- NOTE | 2023-02-23 10:12 | NUR ---
CALL FROM GIRLFRIEND/IGNITION RISK EDUCATION DARLING CALLED UPDATED ON PATIENT CONDITION AND VISITING HOURS. EDUCATED ON IGNITION RISK AND TO LEAVE ANYTHING THAT MAKES A SPARK AT HOME.
--- NOTE | 2023-02-23 15:40 | NUR ---
Summary. Assumed care at 0700, pt ventilated and sedated. Extubated pt at 1100 with good results, OG tube removed as well. All sedating medications stopped, Hannah catheter removed. By midafternoon pt able to ambulate, eat, drink and urinate. Discharged patient at 1515. Pt verbalized understanding of discharge instructions. All personal belonging sent home with patient. 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 VS stable at time of discharge. Room mitigated for ignition risks.
== END 2023-02-23 15:15 | disposition home or self-care (01) | DRG 917 ==
LOC: ER 02:01 → ICUE 04:16
PROVIDERS: Student in an Organized Health Care Education/Training Program; ADMIT Student in an Organized Health Care Education/Training Program
PROC: 5A1935Z Respiratory Ventilation, Less than 24 Consecutive Hours (ICD-10-PCS; principal; 2023-02-23)
PROC: 0BH17EZ Insertion of Endotracheal Airway into Trachea, Via Natural or Artificial Opening (ICD-10-PCS; 2023-02-23)
PROC: 0DH67UZ Insertion of Feeding Device into Stomach, Via Natural or Artificial Opening (ICD-10-PCS; 2023-02-23)
PROC: 0T9B70Z Drainage of Bladder with Drainage Device, Via Natural or Artificial Opening (ICD-10-PCS; 2023-02-23)
PROC: 4A033R1 Measurement of Arterial Saturation, Peripheral, Percutaneous Approach (ICD-10-PCS; 2023-02-23)
PROC: 5A12012 Performance of Cardiac Output, Single, Manual (ICD-10-PCS; 2023-02-23)
PROC: 5A09357 Assistance with Respiratory Ventilation, Less than 24 Consecutive Hours, Continuous Positive Airway Pressure (ICD-10-PCS; 2023-02-23)
DX: T43.651A Poisoning by methamphetamines accidental (unintentional), initial encounter (principal); G92.8 Other toxic encephalopathy; J96.01 Acute respiratory failure with hypoxia; J96.02 Acute respiratory failure with hypercapnia; E87.3 Alkalosis; J45.901 Unspecified asthma with (acute) exacerbation; R82.1 Myoglobinuria; T40.3X1A Poisoning by methadone, accidental (unintentional), initial encounter; F11.10 Opioid abuse, uncomplicated; F41.9 Anxiety disorder, unspecified; E87.6 Hypokalemia; F15.129 Other stimulant abuse with intoxication, unspecified; E83.39 Other disorders of phosphorus metabolism; Z20.822 Contact with and (suspected) exposure to COVID-19; S00.83XA Contusion of other part of head, initial encounter; F90.9 Attention-deficit hyperactivity disorder, unspecified type; X58.XXXA Exposure to other specified factors, initial encounter; Z98.890 Other specified postprocedural states; Z88.8 Allergy status to other drugs, medicaments and biological substances; Z88.5 Allergy status to narcotic agent; Z79.51 Long term (current) use of inhaled steroids; Z79.899 Other long term (current) drug therapy; Z86.19 Personal history of other infectious and parasitic diseases; Z87.891 Personal history of nicotine dependence; Z86.14 Personal history of Methicillin resistant Staphylococcus aureus infection
CPT/HCPCS: 0241U; 31500; 36415; 36600; 51702; 70450; 71045; 80047; 80048; 80053; 81001; 82550; 82803; 82947; 83605; 83735; 84100; 85014; 85025; 87040; 87070; 87205; 93005; 93010; 94002; 94644; 94664; 96365-59; 96366-59; 96375-59; 99285-25; A9270; C9113; J0696; J2250; J2704; J2930; J3010; J3475; J3480; J7030; J7050; J7060; J7120

== ENCOUNTER 2023-06-01 08:12 | Emergency (ER) | payer OTHER ==
[~2023-06-01] VITALS: Ht 182.9 cm; Wt 83.9 kg
[2023-06-01 08:41] VITALS: BP 144/94
[2023-06-01] MEDS ORDERED: ALBU90OI INH (09:01)
[2023-06-01] MEDS ORDERED: Prednisone20 MG PO (09:01)
[2023-06-01] MEDS ORDERED: Zithromax250 MG PO (09:01)
== END 2023-06-01 09:04 | disposition home or self-care (01) ==
LOC: ER 08:12
DX: J06.9 Acute upper respiratory infection, unspecified (principal); Z87.891 Personal history of nicotine dependence; Z88.5 Allergy status to narcotic agent; Z79.51 Long term (current) use of inhaled steroids; Z79.2 Long term (current) use of antibiotics; Z79.899 Other long term (current) drug therapy
CPT/HCPCS: 99282